=== PATIENT | male | born 1965 | race Caucasian/White ===

== ENCOUNTER 2016-10-14 17:05 | Inpatient (IN) | payer OTHER ==
[~2016-10-14] VITALS: Ht 185.4 cm; Wt 96.1 kg
[~2016-10-14 17:05] MED LIST: BENTYL10 MG PO; CIPRO500 MG PO; FLAGYL500 MG PO; MIRALAX255 GM PO; NOHOMEMEDS
[2016-10-14 18:13] LABS: HEMATOCRIT 49.5 % (38.0-50.0); MCHC 34.9 G/DL (30.0-36.0); MCV 85.9 FL (86-99); MEAN PLAT.VOLUME 10.8 uM^3 (9.0-12.4); PLATELET COUNT 282 K/uL (156-360); RBC DIS.WIDTH-CV 13.1 % (11.8-14.6); RBC DIS.WIDTH-SD 40.4 % (39-53); RED BLOOD COUNT 5.76 M/uL (4.00-5.50); WHITE BLOOD COUNT 13.4 K/uL (4.1-10.2)
[2016-10-14 18:31] LABS: CHLORIDE 107 mEq/L (99-109); SODIUM 142 mEq/L (136-147)
[2016-10-14 18:34] LABS: GLUCOSE 103 mg/dL (70-99)
[2016-10-14 18:35] LABS: ANION GAP 19 MEQ/L (2-14)
[2016-10-14 18:36] LABS: TOTAL BILIRUBIN 0.7 mg/dL (0.0-1.0)
[2016-10-14 18:37] LABS: ALKALINE PHOSPHATASE 90 IU/L (3-129); SERUM ETHYL ALCOHOL 262 mg/dL
[2016-10-14 18:38] LABS: GFR ESTIMATE (CALCULATED) > 59 mL/min/
[2016-10-14 18:39] LABS: UREA NITROGEN (BUN) 17 mg/dL (9-23)
[2016-10-14 18:43] LABS: TROP-I INTERPRETATION NEGATIVE; TROPONIN-I < 0.01 ng/mL (0.0-0.30)
[2016-10-14 21:27] LABS: SALICYLATE < 5.0 MG/DL (15-30)
[2016-10-14 22:05] LABS: ADD MIUA? YES; BILIRUBIN NEGATIVE; BLOOD SMALL; COLOR YELLOW ((YELLOW)); GLUCOSE (STRIP) NEGATIVE; KETONES 20; LEUKOCYTES NEGATIVE; NITRITE NEGATIVE; PROTEIN (STRIP) 100; SPECIFIC GRAVITY 1.023 (1.000-1.030); UROBILINOGEN 0.2 MG/DL (0.2-1.0)
[2016-10-14 22:11] LABS: BACTERIA RARE /HPF; EPITHELIAL CELLS RARE /HPF; HYALINE CASTS 20-30 /LPF; MUCUS TRACE /LPF; RED BLOOD CELLS 0-5 /HPF (0-5); UCUL ADDED? NO; WHITE BLOOD CELLS 0-5 /HPF (0-5)
[2016-10-14 22:13] LABS: ADD MEDTOX COMMENT Y; AMPHETAMINE NEGATIVE (500 ng/mL); BARBITURATES NEGATIVE (200 ng/mL); BENZODIAZEPINES NEGATIVE (150 ng/mL); COCAINE NEGATIVE (150 ng/mL); INTERNAL CONTROLS VALID? YES; METHADONE NEGATIVE (200 ng/mL); METHAMPHETAMINE NEGATIVE (500 ng/mL); OPIATES (MORPHINE) NEGATIVE (100 ng/mL); OXYCODONE NEGATIVE (100 ng/mL); PHENCYCLIDINE NEGATIVE (25 ng/mL); PROPOXYPHENE NEGATIVE (300 ng/mL); THC CANNABINOIDS PRESUMPTIVE POSITIVE (50 ng/mL); TRICYCLIC ANTIDEPRESSANTS NEGATIVE (300 ng/mL)
[2016-10-15 00:31] LABS: MAGNESIUM 2.4 mg/dL (1.3-2.7)
[2016-10-15 01:49] VITALS: BP 135/91
[2016-10-15 05:47] LABS: HEMATOCRIT 39.4 % (38.0-50.0); MCH 31.3 PG (29.0-34.0); MCHC 35.5 G/DL (30.0-36.0); MCV 87.9 FL (86-99); RBC DIS.WIDTH-CV 13.2 % (11.8-14.6); RBC DIS.WIDTH-SD 42.9 % (39-53); RED BLOOD COUNT 4.48 M/uL (4.00-5.50); WHITE BLOOD COUNT 9.4 K/uL (4.1-10.2)
[2016-10-15 05:54] LABS: MEAN PLAT.VOLUME 10.9 uM^3 (9.0-12.4); PLAT.SUFFICIENCY ADEQUATE
[2016-10-15 05:55] LABS: PLATELET COUNT 187 K/uL (156-360)
[2016-10-15 06:15] LABS: ANION GAP 9 MEQ/L (2-14); CHLORIDE 109 MEQ/L (99-109); GFR ESTIMATE (CALCULATED) > 59 mL/min/; GLUCOSE 89 mg/dL (70-99); POTASSIUM 4.2 MEQ/L (3.7-5.4); SAMPLE HEMOLYSIS CHECK 0; SAMPLE ICTERIC CHECK 0; SAMPLE LIPEMIA CHECK 0; SODIUM 140 MEQ/L (136-147); UREA NITROGEN (BUN) 12 mg/dL (9-23)
[2016-10-15 08:30] VITALS: BP 138/88
[2016-10-15 11:48] VITALS: BP 147/93
[2016-10-15 15:49] VITALS: BP 135/89
[2016-10-15 23:51] VITALS: BP 121/74
[2016-10-16] MEDS ORDERED: VITAMIN B-1100 MG PO (07:59)
[2016-10-16] MEDS ORDERED: CHLORDIAZEPOXID25 MG PO ×2 (07:59→08:01)
[2016-10-16 08:08] VITALS: BP 146/76
== END 2016-10-16 09:00 | disposition home or self-care (01) | DRG 641 ==
LOC: EME 17:05 → EDOF 23:46 → 5SOUTH 23:46 → ENRESERV 23:49 → 5SOUTH 10-15 01:34
PROVIDERS: Emergency Medicine; Hospitalist
DX: E87.2 Acidosis (principal); F10.229 Alcohol dependence with intoxication, unspecified; F17.210 Nicotine dependence, cigarettes, uncomplicated; R07.9 Chest pain, unspecified; F43.23 Adjustment disorder with mixed anxiety and depressed mood; R45.851 Suicidal ideations; F12.90 Cannabis use, unspecified, uncomplicated; Y90.8 Blood alcohol level of 240 mg/100 ml or more; Z63.0 Problems in relationship with spouse or partner
CPT/HCPCS: 71010; 80048; 80053; 81003; 82010; 82693 90; 83605; 83735; 84484; 84999; 85027; 93005; 99281; 99285; G0480; J1630; J1650; J3411; J7030

== ENCOUNTER 2016-11-19 21:48 | Observation (INO) | payer OTHER ==
[~2016-11-19] VITALS: Ht 190.5 cm; Wt 91.7 kg
[~2016-11-19 21:48] MED LIST changes: +CHLORDIAZEPOXID25 MG PO; +VITAMIN B-1100 MG PO
[2016-11-19 22:51] LABS: HEMATOCRIT 49.8 % (38.0-50.0); MCH 30.4 PG (29.0-34.0); MCHC 34.1 G/DL (30.0-36.0); MCV 89.1 FL (86-99); MEAN PLAT.VOLUME 11.2 uM^3 (9.0-12.4); PLATELET COUNT 290 K/uL (156-360); RBC DIS.WIDTH-CV 13.2 % (11.8-14.6); RBC DIS.WIDTH-SD 43.2 % (39-53); RED BLOOD COUNT 5.59 M/uL (4.00-5.50); WHITE BLOOD COUNT 21.2 K/uL (4.1-10.2)
[2016-11-19 23:06] LABS: CHLORIDE 110 mEq/L (99-109); POTASSIUM 4.2 mEq/L (3.7-5.4); SODIUM 142 mEq/L (136-147)
[2016-11-19 23:08] LABS: GLUCOSE 80 mg/dL (70-99)
[2016-11-19 23:09] LABS: ANION GAP 18 MEQ/L (2-14)
[2016-11-19 23:11] LABS: SERUM ETHYL ALCOHOL 206 mg/dL
[2016-11-19 23:12] LABS: GFR ESTIMATE (CALCULATED) > 59 mL/min/
[2016-11-19 23:13] LABS: UREA NITROGEN (BUN) 19 mg/dL (9-23)
[2016-11-19 23:47] LABS: CREATINE KINASE 682 IU/L (1-294); TOTAL CK 682 IU/L (1-294)
[2016-11-19 23:53] LABS: CK-MB 5.6 ng/mL (0.0-4.9); TROP-I INTERPRETATION NEGATIVE; TROPONIN-I < 0.01 ng/mL (0.0-0.30)
[2016-11-20 01:58] LABS: CHLORIDE 115 mEq/L (99-109); POTASSIUM 4.2 mEq/L (3.7-5.4); SODIUM 142 mEq/L (136-147)
[2016-11-20 02:00] LABS: GLUCOSE 73 mg/dL (70-99)
[2016-11-20 02:02] LABS: ANION GAP 13 MEQ/L (2-14)
[2016-11-20 02:04] LABS: GFR ESTIMATE (CALCULATED) > 59 mL/min/
[2016-11-20 02:05] LABS: UREA NITROGEN (BUN) 17 mg/dL (9-23)
[2016-11-20 02:07] LABS: CREATINE KINASE 628 IU/L (1-294); TOTAL CK 628 IU/L (1-294)
[2016-11-20 02:17] LABS: BASE EXCESS -8.1 mEq/L (-3 to +3); BICARBONATE 17.1 mEq/L (22-26); CARBOXY HGB 3.4 % (0-5); METHEMOGLOBIN 1.1 % (0-1.5); PCO2 34 mm Hg (35-45); PO2 63 mm Hg (80-100); pH 7.31 (7.35-7.45)
[2016-11-20 02:18] LABS: COMMENTS - BLOOD GASES C+A+; FI02 21 %; O2 FLOW 0 L/MIN; SITE RR
[2016-11-20 02:42] LABS: CK-MB 7.1 ng/mL (0.0-4.9)
[2016-11-20 03:01] LABS: AMPHETAMINE NEGATIVE (500 ng/mL); BARBITURATES NEGATIVE (200 ng/mL); BENZODIAZEPINES PRESUMPTIVE POSITIVE (150 ng/mL); COCAINE NEGATIVE (150 ng/mL); METHADONE NEGATIVE (200 ng/mL); METHAMPHETAMINE NEGATIVE (500 ng/mL); OPIATES (MORPHINE) NEGATIVE (100 ng/mL); OXYCODONE NEGATIVE (100 ng/mL); PHENCYCLIDINE NEGATIVE (25 ng/mL); PROPOXYPHENE NEGATIVE (300 ng/mL); THC CANNABINOIDS PRESUMPTIVE POSITIVE (50 ng/mL); TRICYCLIC ANTIDEPRESSANTS NEGATIVE (300 ng/mL)
[2016-11-20 03:02] LABS: ADD MEDTOX COMMENT Y; INTERNAL CONTROLS VALID? YES
[2016-11-20 03:47] LABS: BENZODIAZEPINES QUANT VALUE 0 NG/ML; BENZODIAZEPINES, URINE SCREEN Negative (200 ng/mL)
[2016-11-20 06:57] LABS: ADD MIUA? NO; BILIRUBIN NEGATIVE; BLOOD NEGATIVE; COLOR YELLOW ((YELLOW)); GLUCOSE (STRIP) NEGATIVE; KETONES 20; LEUKOCYTES NEGATIVE; NITRITE NEGATIVE; PROTEIN (STRIP) 30; UCUL ADDED? NO; UROBILINOGEN 0.2 MG/DL (0.2-1.0)
[2016-11-20 07:52] LABS: MAGNESIUM 2.3 mg/dL (1.3-2.7)
[2016-11-20 08:27] VITALS: BP 137/75
[2016-11-20 09:43] LABS: HEMATOCRIT 44.9 % (38.0-50.0); MCH 29.8 PG (29.0-34.0); MCHC 32.7 G/DL (30.0-36.0); MCV 91.1 FL (86-99); MEAN PLAT.VOLUME 11.6 uM^3 (9.0-12.4); PLATELET COUNT 244 K/uL (156-360); RBC DIS.WIDTH-CV 13.6 % (11.8-14.6); RBC DIS.WIDTH-SD 46.2 % (39-53); RED BLOOD COUNT 4.93 M/uL (4.00-5.50); WHITE BLOOD COUNT 19.1 K/uL (4.1-10.2)
[2016-11-20 09:58] LABS: CHLORIDE 110 mEq/L (99-109); POTASSIUM 4.6 mEq/L (3.7-5.4); SODIUM 139 mEq/L (136-147)
[2016-11-20 10:00] LABS: GLUCOSE 68 mg/dL (70-99)
[2016-11-20 10:02] LABS: ANION GAP 18 MEQ/L (2-14); TOTAL BILIRUBIN 0.6 mg/dL (0.0-1.0)
[2016-11-20 10:04] LABS: ALKALINE PHOSPHATASE 76 IU/L (3-129); GFR ESTIMATE (CALCULATED) > 59 mL/min/
[2016-11-20 10:05] LABS: UREA NITROGEN (BUN) 18 mg/dL (9-23)
[2016-11-20 10:13] LABS: CREATINE KINASE 1030 IU/L (1-294)
[2016-11-20 12:20] LABS: TROP-I INTERPRETATION NEGATIVE; TROPONIN-I < 0.01 ng/mL (0.0-0.30)
[2016-11-20 12:30] VITALS: BP 139/88
[2016-11-20 16:00] LABS: CARBOXY HGB 2.4 % (0-5); METHEMOGLOBIN 1.6 % (0-1.5); PCO2 36 mm Hg (35-45); PO2 72 mm Hg (80-100)
[2016-11-20 16:01] LABS: BICARBONATE 22.3 mEq/L (22-26); COMMENTS - BLOOD GASES A+C+; DEVICE RA; SITE RR
[2016-11-20 16:55] LABS: HEMATOCRIT 40.2 % (38.0-50.0); MCH 30.2 PG (29.0-34.0); MCHC 34.6 G/DL (30.0-36.0); MCV 87.4 FL (86-99); MEAN PLAT.VOLUME 11.2 uM^3 (9.0-12.4); PLATELET COUNT 219 K/uL (156-360); RBC DIS.WIDTH-SD 41.4 % (39-53)
[2016-11-20 17:12] LABS: CREATINE KINASE 1273 IU/L (1-294)
[2016-11-20 18:00] LABS: CHLORIDE 108 mEq/L (99-109); POTASSIUM 3.8 mEq/L (3.7-5.4); SODIUM 136 mEq/L (136-147)
[2016-11-20 18:03] LABS: ANION GAP 11 MEQ/L (2-14); GLUCOSE 97 mg/dL (70-99)
[2016-11-20 18:05] LABS: GFR ESTIMATE (CALCULATED) > 59 mL/min/
[2016-11-20 18:06] LABS: UREA NITROGEN (BUN) 15 mg/dL (9-23)
[2016-11-20 18:59] LABS: TROP-I INTERPRETATION NEGATIVE; TROPONIN-I < 0.01 ng/mL (0.0-0.30)
[2016-11-20 19:33] VITALS: BP 132/88
[2016-11-21 04:00] VITALS: BP 120/77
[2016-11-21 06:03] LABS: HEMATOCRIT 39.8 % (38.0-50.0); MCH 29.8 PG (29.0-34.0); MCHC 33.9 G/DL (30.0-36.0); MCV 87.9 FL (86-99); MEAN PLAT.VOLUME 11.3 uM^3 (9.0-12.4); PLATELET COUNT 198 K/uL (156-360); RBC DIS.WIDTH-CV 12.9 % (11.8-14.6); RBC DIS.WIDTH-SD 42.3 % (39-53); RED BLOOD COUNT 4.53 M/uL (4.00-5.50); WHITE BLOOD COUNT 12.3 K/uL (4.1-10.2)
[2016-11-21 06:26] LABS: ANION GAP 5 MEQ/L (2-14); CHLORIDE 109 MEQ/L (99-109); CREATINE KINASE 783 IU/L (1-294); GFR ESTIMATE (CALCULATED) > 59 mL/min/; GLUCOSE 122 mg/dL (70-99); SAMPLE HEMOLYSIS CHECK 0; SAMPLE ICTERIC CHECK 0; SAMPLE LIPEMIA CHECK 0; SODIUM 139 MEQ/L (136-147); UREA NITROGEN (BUN) 10 mg/dL (9-23)
[2016-11-21 09:01] VITALS: BP 119/80
[2016-11-21] MEDS ORDERED: TYLENOL REGULA325 MG PO (13:29)
[2016-11-21] MEDS ORDERED: FOLIC ACID1 MG PO (13:30)
[2016-11-21] MEDS ORDERED: ONE DAILY MULT1 EACH PO (13:30)
[2016-11-21 14:01] LABS: ANION GAP 7 MEQ/L (2-14); CHLORIDE 109 MEQ/L (99-109); GFR ESTIMATE (CALCULATED) > 59 mL/min/; GLUCOSE 128 mg/dL (70-99); POTASSIUM 3.7 MEQ/L (3.7-5.4); SAMPLE HEMOLYSIS CHECK 0; SAMPLE ICTERIC CHECK 0; SAMPLE LIPEMIA CHECK 0; SODIUM 140 MEQ/L (136-147); UREA NITROGEN (BUN) 10 mg/dL (9-23)
[2016-11-21 15:16] LABS: CREATINE KINASE 732 IU/L (1-294)
[2016-11-21 19:30] VITALS: BP 147/94
== END 2016-11-21 20:10 ==
LOC: EME → EDBD 21:48 → EME 21:48 → 5WEST 11-20 06:08 → EDOF 11-20 06:08 → ENRESERV 11-20 06:16 → 5WEST 11-20 08:19
PROVIDERS: Emergency Medicine; Hospitalist; Internal Medicine
DX: R45.851 Suicidal ideations (principal); F10.20 Alcohol dependence, uncomplicated; F43.23 Adjustment disorder with mixed anxiety and depressed mood; F91.9 Conduct disorder, unspecified; E86.0 Dehydration; E87.2 Acidosis; D72.829 Elevated white blood cell count, unspecified; F19.10 Other psychoactive substance abuse, uncomplicated; Z87.19 Personal history of other diseases of the digestive system; F17.200 Nicotine dependence, unspecified, uncomplicated; M62.82 Rhabdomyolysis; F12.20 Cannabis dependence, uncomplicated; Z88.0 Allergy status to penicillin; Z88.6 Allergy status to analgesic agent
CPT/HCPCS: 36600; 71010; 80048; 80048 91; 80053; 81003; 82550; 82550 91; 82553; 82803; 83735; 84484; 84999; 85027; 90837; 99281; 99285; G0378; G0480; J1630; J1650; J2060; J3411; J3475; J7030; J7050

== ENCOUNTER 2016-11-21 19:21 | Inpatient (IN) | payer OTHER ==
[~2016-11-21 19:21] MED LIST changes: +FOLIC ACID1 MG PO; +ONE DAILY MULT1 EACH PO; +TYLENOL REGULA325 MG PO
[2016-11-21 20:45] VITALS: BP 138/98
[2016-11-22 07:59] VITALS: BP 148/86
[2016-11-22 15:41] VITALS: BP 129/89
[2016-11-23 08:06] VITALS: BP 137/79
[2016-11-23 16:20] VITALS: BP 127/84
[2016-11-24 07:52] VITALS: BP 136/88
[2016-11-24 15:48] VITALS: BP 132/101
[2016-11-25 08:02] VITALS: BP 103/79
[2016-11-25] MEDS ORDERED: Lidoderm 5% Patch TD (08:16)
[2016-11-25] MEDS ORDERED: TRAZODONE HCL50 MG PO (08:16)
[2016-11-25] MEDS ORDERED: BUPROPION HCL100 M1 PO (08:16)
[2016-11-25] MEDS ORDERED: NALTREXONE HCL50 MG PO (08:16)
== END 2016-11-25 10:10 | disposition other institution (70) | DRG 882 ==
LOC: 1WEST 19:21 → ENRESERV 19:22 → 1WEST 20:14
DX: F43.23 Adjustment disorder with mixed anxiety and depressed mood (principal); R45.851 Suicidal ideations; M62.82 Rhabdomyolysis; E87.2 Acidosis; M25.561 Pain in right knee; F10.20 Alcohol dependence, uncomplicated; F12.20 Cannabis dependence, uncomplicated; F17.200 Nicotine dependence, unspecified, uncomplicated; Y04.0XXA Assault by unarmed brawl or fight, initial encounter
CPT/HCPCS: 71020; 73560; 97150 GO; Q0177

== ENCOUNTER 2017-02-18 15:59 | Emergency (ER) | payer OTHER ==
[~2017-02-18] VITALS: Ht 188 cm; Wt 81.8 kg
[~2017-02-18 15:59] MED LIST changes: +BUPROPION HCL100 M1 PO; +Lidoderm 5% Patch TD; +NALTREXONE HCL50 MG PO; +TRAZODONE HCL50 MG PO
[2017-02-18 16:46] LABS: HEMATOCRIT 48.7 % (38.0-50.0); MCH 30.8 PG (29.0-34.0); MCHC 35.3 G/DL (30.0-36.0); MCV 87.3 FL (86-99); MEAN PLAT.VOLUME 11.1 uM^3 (9.0-12.4); PLATELET COUNT 260 K/uL (156-360); RBC DIS.WIDTH-SD 41.3 % (39-53); RED BLOOD COUNT 5.58 M/uL (4.00-5.50); WHITE BLOOD COUNT 12.2 K/uL (4.1-10.2)
[2017-02-18 16:51] LABS: AMPHETAMINE NEGATIVE (500 ng/mL); BARBITURATES NEGATIVE (200 ng/mL); BENZODIAZEPINES NEGATIVE (150 ng/mL); COCAINE NEGATIVE (150 ng/mL); INTERNAL CONTROLS VALID? YES; METHADONE NEGATIVE (200 ng/mL); METHAMPHETAMINE NEGATIVE (500 ng/mL); OPIATES (MORPHINE) NEGATIVE (100 ng/mL); OXYCODONE NEGATIVE (100 ng/mL); PHENCYCLIDINE NEGATIVE (25 ng/mL); PROPOXYPHENE NEGATIVE (300 ng/mL); THC CANNABINOIDS NEGATIVE (50 ng/mL); TRICYCLIC ANTIDEPRESSANTS NEGATIVE (300 ng/mL)
[2017-02-18 16:56] LABS: CHLORIDE 111 mEq/L (99-109); SODIUM 144 mEq/L (136-147)
[2017-02-18 16:58] LABS: GLUCOSE 96 mg/dL (70-99)
[2017-02-18 16:59] LABS: ANION GAP 12 MEQ/L (2-14)
[2017-02-18 17:01] LABS: SERUM ETHYL ALCOHOL 234 mg/dL
[2017-02-18 17:02] LABS: GFR ESTIMATE (CALCULATED) > 59 mL/min/ (58.99-99999)
[2017-02-18 17:04] LABS: UREA NITROGEN (BUN) 12 mg/dL (9-23)
[2017-02-18 17:05] LABS: SALICYLATE < 5.0 MG/DL (15-30)
[2017-02-18 22:49] VITALS: BP 121/82
== END 2017-02-18 22:59 | disposition home or self-care (01) ==
LOC: EME 15:59
PROVIDERS: Nurse Practitioner Family
DX: F33.9 Major depressive disorder, recurrent, unspecified (principal); F10.20 Alcohol dependence, uncomplicated; Y90.7 Blood alcohol level of 200-239 mg/100 ml; F17.200 Nicotine dependence, unspecified, uncomplicated; Z88.0 Allergy status to penicillin; Z88.6 Allergy status to analgesic agent
CPT/HCPCS: 80048; 85027; 90837; 99281; 99284; G0480; J1630; J2060

== ENCOUNTER 2017-03-17 17:28 | Emergency (ER) | payer OTHER ==
[~2017-03-17] VITALS: Ht 190.5 cm; Wt 89.9 kg
[2017-03-17 18:15] LABS: HEMATOCRIT 46.2 % (38.0-50.0); HEMOGLOBIN 16.3 G/DL (12.5-16.6); MCHC 35.3 G/DL (30.0-36.0); MCV 87.8 FL (86-99); PLATELET COUNT 318 K/uL (156-360); RBC DIS.WIDTH-CV 12.8 % (11.8-14.6); RBC DIS.WIDTH-SD 41.5 % (39-53); RED BLOOD COUNT 5.26 M/uL (4.00-5.50); WHITE BLOOD COUNT 17.5 K/uL (4.1-10.2)
[2017-03-17 18:22] LABS: ALBUMIN 4.4 g/dL (3.2-4.8); CHLORIDE 109 mEq/L (99-109); POTASSIUM 3.4 mEq/L (3.7-5.4)
[2017-03-17 18:23] LABS: SODIUM 139 mEq/L (136-147)
[2017-03-17 18:25] LABS: GLUCOSE 126 mg/dL (70-99); TOTAL PROTEIN 7.3 g/dL (6.4-8.3)
[2017-03-17 18:27] LABS: TOTAL BILIRUBIN 0.4 mg/dL (0.0-1.0)
[2017-03-17 18:28] LABS: ALKALINE PHOSPHATASE 68 IU/L (3-129); SERUM ETHYL ALCOHOL 204 mg/dL
[2017-03-17 18:29] LABS: CREATININE 1.1 mg/dL (0.6-1.3); GFR ESTIMATE (CALCULATED) > 59 mL/min/ (58.99-99999)
[2017-03-17 18:30] LABS: AST (GOT) 20 IU/L (2-34); UREA NITROGEN (BUN) 12 mg/dL (9-23)
[2017-03-17 18:31] LABS: ALT (GPT) 21 IU/L (3-49)
[2017-03-17 22:27] VITALS: BP 114/69
[2017-03-17 22:44] LABS: APPEARANCE CLEAR ((CLEAR)); BILIRUBIN NEGATIVE; BLOOD NEGATIVE; COLOR STRAW ((YELLOW)); GLUCOSE (STRIP) NEGATIVE; KETONES NEGATIVE; LEUKOCYTES NEGATIVE; NITRITE NEGATIVE; PROTEIN (STRIP) NEGATIVE; SPECIFIC GRAVITY 1.004 (1.000-1.030); UCUL ADDED? NO; UROBILINOGEN 0.2 MG/DL (0.2-1.0)
[2017-03-17 23:01] LABS: AMPHETAMINE NEGATIVE (500 ng/mL); BARBITURATES NEGATIVE (200 ng/mL); BENZODIAZEPINES NEGATIVE (150 ng/mL); BUPRENORPHINE NEGATIVE (10 ng/mL); COCAINE NEGATIVE (150 ng/mL); METHADONE NEGATIVE (200 ng/mL); METHAMPHETAMINE NEGATIVE (500 ng/mL); OPIATES (MORPHINE) NEGATIVE (100 ng/mL); OXYCODONE NEGATIVE (100 ng/mL); PHENCYCLIDINE NEGATIVE (25 ng/mL); PROPOXYPHENE NEGATIVE (300 ng/mL); THC CANNABINOIDS NEGATIVE (50 ng/mL); TRICYCLIC ANTIDEPRESSANTS NEGATIVE (300 ng/mL)
== END 2017-03-17 23:59 | disposition home or self-care (01) ==
LOC: EME 17:28
PROVIDERS: Emergency Medicine
DX: F10.129 Alcohol abuse with intoxication, unspecified (principal); F33.9 Major depressive disorder, recurrent, unspecified; R45.1 Restlessness and agitation; E86.0 Dehydration; Y90.7 Blood alcohol level of 200-239 mg/100 ml; F17.200 Nicotine dependence, unspecified, uncomplicated
CPT/HCPCS: 80053; 81003; 85027; 90837; 99281; 99285; G0480; J1630; J2060

== ENCOUNTER 2017-04-07 14:21 | Inpatient (IN) | payer OTHER ==
[~2017-04-07] VITALS: Ht 190.5 cm; Wt 93.9 kg
[2017-04-07] MEDS ORDERED: PROZAC20 MG PO (14:51)
[2017-04-07 14:52] LABS: BASOPHIL (%) 0.6 % (0-1); BASOPHIL COUNT 0.1 K/uL (0-0.1); EOSINOPHIL (%) 0.8 % (0-5); EOSINOPHIL COUNT 0.1 K/uL (0-0.3); HEMATOCRIT 46.3 % (38.0-50.0); HEMOGLOBIN 16.4 G/DL (12.5-16.6); IMMATURE GRANULOCYTE (%) 0.9 % (0.0-0.7); LYMPHOCYTE (%) 18.1 % (15-42); LYMPHOCYTE COUNT 2.3 K/uL (1.0-2.8); MCHC 35.4 G/DL (30.0-36.0); MCV 87.5 FL (86-99); MONOCYTE (%) 4.9 % (3-12); MONOCYTE COUNT 0.6 K/uL (0-0.8); NEUTROPHIL (%) 74.7 % (45-76); NEUTROPHIL COUNT 9.5 K/uL (1.8-6.4); PLATELET COUNT 249 K/uL (156-360); RBC DIS.WIDTH-CV 12.8 % (11.8-14.6); RBC DIS.WIDTH-SD 40.9 % (39-53); RED BLOOD COUNT 5.29 M/uL (4.00-5.50); WHITE BLOOD COUNT 12.7 K/uL (4.1-10.2)
[2017-04-07 15:03] LABS: ALBUMIN 4.7 g/dL (3.2-4.8); CHLORIDE 111 mEq/L (99-109); POTASSIUM 3.9 mEq/L (3.7-5.4); SODIUM 140 mEq/L (136-147)
[2017-04-07 15:06] LABS: GLUCOSE 151 mg/dL (70-99); TOTAL PROTEIN 7.7 g/dL (6.4-8.3)
[2017-04-07 15:08] LABS: TOTAL BILIRUBIN 0.3 mg/dL (0.0-1.0)
[2017-04-07 15:09] LABS: SERUM ETHYL ALCOHOL 192 mg/dL
[2017-04-07 15:10] LABS: ALKALINE PHOSPHATASE 83 IU/L (3-129); CREATININE 1.1 mg/dL (0.6-1.3); GFR ESTIMATE (CALCULATED) > 59 mL/min/ (58.99-99999)
[2017-04-07 15:11] LABS: AST (GOT) 21 IU/L (2-34); UREA NITROGEN (BUN) 14 mg/dL (9-23)
[2017-04-07 15:13] LABS: ACETAMINOPHEN (TYLENOL) < 10 mcg/mL (10-30); ALT (GPT) 26 IU/L (3-49); SALICYLATE < 5.0 MG/DL (15-30)
[2017-04-07 16:24] LABS: AMPHETAMINE NEGATIVE (500 ng/mL); BARBITURATES NEGATIVE (200 ng/mL); BENZODIAZEPINES NEGATIVE (150 ng/mL); BUPRENORPHINE NEGATIVE (10 ng/mL); COCAINE NEGATIVE (150 ng/mL); METHADONE NEGATIVE (200 ng/mL); METHAMPHETAMINE NEGATIVE (500 ng/mL); OPIATES (MORPHINE) NEGATIVE (100 ng/mL); OXYCODONE NEGATIVE (100 ng/mL); PHENCYCLIDINE NEGATIVE (25 ng/mL); PROPOXYPHENE NEGATIVE (300 ng/mL); THC CANNABINOIDS NEGATIVE (50 ng/mL); TRICYCLIC ANTIDEPRESSANTS NEGATIVE (300 ng/mL)
[2017-04-07 20:03] VITALS: BP 134/94
[2017-04-07] MEDS ORDERED: SEROQUEL50 MG PO (20:21)
[2017-04-07] MEDS ORDERED: IBUPROFEN800 MG PO (20:27)
[2017-04-08 08:21] VITALS: BP 150/100
[2017-04-08 15:47] VITALS: BP 119/80
[2017-04-08 15:49] VITALS: BP 119/80
[2017-04-09 09:27] VITALS: BP 131/63
[2017-04-09 15:11] VITALS: BP 142/82
[2017-04-10 08:09] VITALS: BP 119/73
[2017-04-10 14:59] VITALS: BP 123/80
[2017-04-11 07:57] VITALS: BP 119/83
[2017-04-11] MEDS ORDERED: CYMBALTA60 MG PO (08:57)
== END 2017-04-11 09:47 | disposition home or self-care (01) | DRG 885 ==
LOC: EME 14:21 → EDOF 18:59 → 1WEST 18:59 → ENRESERV 19:54 → 1WEST 19:54
PROVIDERS: Emergency Medicine
DX: F33.2 Major depressive disorder, recurrent severe without psychotic features (principal); Z79.899 Other long term (current) drug therapy; Z59.0 Homelessness; R45.851 Suicidal ideations; F10.20 Alcohol dependence, uncomplicated; F17.200 Nicotine dependence, unspecified, uncomplicated
CPT/HCPCS: 80053; 85025; 90839; 97150 GO; 97165 GO; 99281; 99285; G0480

== ENCOUNTER 2017-05-27 08:57 | Emergency (ER) | payer OTHER ==
[~2017-05-27] VITALS: Ht 193 cm; Wt 89.7 kg
[~2017-05-27 08:57] MED LIST changes: +CYMBALTA60 MG PO; +IBUPROFEN800 MG PO; +PROZAC20 MG PO; +SEROQUEL50 MG PO
[2017-05-27 10:47] LABS: HEMATOCRIT 47.7 % (38.0-50.0); HEMOGLOBIN 16.5 G/DL (12.5-16.6); MCH 30.9 PG (29.0-34.0); MCHC 34.6 G/DL (30.0-36.0); MCV 89.3 FL (86-99); PLATELET COUNT 216 K/uL (156-360); RBC DIS.WIDTH-CV 13.2 % (11.8-14.6); RBC DIS.WIDTH-SD 43.5 % (39-53); RED BLOOD COUNT 5.34 M/uL (4.00-5.50); WHITE BLOOD COUNT 10.1 K/uL (4.1-10.2)
[2017-05-27 11:00] LABS: CHLORIDE 109 mEq/L (99-109); POTASSIUM 3.9 mEq/L (3.7-5.4); SODIUM 145 mEq/L (136-147)
[2017-05-27 11:01] LABS: GLUCOSE 103 mg/dL (70-99)
[2017-05-27 11:04] LABS: SERUM ETHYL ALCOHOL 233 mg/dL
[2017-05-27 11:05] LABS: CREATININE 0.9 mg/dL (0.6-1.3); GFR ESTIMATE (CALCULATED) > 59 mL/min/ (58.99-99999)
[2017-05-27 11:06] LABS: UREA NITROGEN (BUN) 11 mg/dL (9-23)
[2017-05-27 16:07] LABS: AMPHETAMINE NEGATIVE (500 ng/mL); BARBITURATES NEGATIVE (200 ng/mL); BENZODIAZEPINES PRESUMPTIVE POSITIVE (150 ng/mL); BUPRENORPHINE NEGATIVE (10 ng/mL); COCAINE NEGATIVE (150 ng/mL); METHADONE NEGATIVE (200 ng/mL); METHAMPHETAMINE NEGATIVE (500 ng/mL); OPIATES (MORPHINE) NEGATIVE (100 ng/mL); OXYCODONE NEGATIVE (100 ng/mL); PHENCYCLIDINE NEGATIVE (25 ng/mL); PROPOXYPHENE NEGATIVE (300 ng/mL); THC CANNABINOIDS PRESUMPTIVE POSITIVE (50 ng/mL); TRICYCLIC ANTIDEPRESSANTS NEGATIVE (300 ng/mL)
[2017-05-27 16:42] VITALS: BP 117/79
[2017-05-27 16:44] LABS: BENZODIAZEPINES, URINE SCREEN Negative (200 ng/mL)
== END 2017-05-27 16:59 | disposition home or self-care (01) ==
LOC: EME 08:57
PROVIDERS: Nurse Practitioner Family
DX: F43.20 Adjustment disorder, unspecified (principal); F10.10 Alcohol abuse, uncomplicated; Y90.7 Blood alcohol level of 200-239 mg/100 ml; F17.200 Nicotine dependence, unspecified, uncomplicated; F32.9 Major depressive disorder, single episode, unspecified; Z88.0 Allergy status to penicillin; Z88.6 Allergy status to analgesic agent
CPT/HCPCS: 80048; 84999; 85027; 90839; 99281; 99285; G0480; J1630; J2060

== ENCOUNTER 2017-07-06 20:05 | Inpatient (IN) | payer OTHER ==
[~2017-07-06] VITALS: Ht 193 cm; Wt 97.6 kg
[2017-07-06 20:59] LABS: AMPHETAMINE NEGATIVE (500 ng/mL); BARBITURATES NEGATIVE (200 ng/mL); BENZODIAZEPINES NEGATIVE (150 ng/mL); BUPRENORPHINE NEGATIVE (10 ng/mL); COCAINE NEGATIVE (150 ng/mL); METHADONE NEGATIVE (200 ng/mL); METHAMPHETAMINE NEGATIVE (500 ng/mL); OPIATES (MORPHINE) NEGATIVE (100 ng/mL); OXYCODONE NEGATIVE (100 ng/mL); PHENCYCLIDINE NEGATIVE (25 ng/mL); PROPOXYPHENE NEGATIVE (300 ng/mL); THC CANNABINOIDS PRESUMPTIVE POSITIVE (50 ng/mL); TRICYCLIC ANTIDEPRESSANTS NEGATIVE (300 ng/mL)
[2017-07-06 21:10] LABS: BASOPHIL (%) 0.9 % (0-1); BASOPHIL COUNT 0.1 K/uL (0-0.1); EOSINOPHIL (%) 1.5 % (0-5); EOSINOPHIL COUNT 0.2 K/uL (0-0.3); HEMATOCRIT 50.4 % (38.0-50.0); HEMOGLOBIN 17.8 G/DL (12.5-16.6); IMMATURE GRANULOCYTE (%) 1.6 % (0.0-0.7); LYMPHOCYTE (%) 21.8 % (15-42); LYMPHOCYTE COUNT 2.2 K/uL (1.0-2.8); MCH 31.1 PG (29.0-34.0); MCHC 35.3 G/DL (30.0-36.0); MCV 88.1 FL (86-99); MONOCYTE (%) 6.5 % (3-12); MONOCYTE COUNT 0.7 K/uL (0-0.8); NEUTROPHIL (%) 67.7 % (45-76); NEUTROPHIL COUNT 6.9 K/uL (1.8-6.4); PLATELET COUNT 242 K/uL (156-360); RBC DIS.WIDTH-CV 13.1 % (11.8-14.6); RBC DIS.WIDTH-SD 42.6 % (39-53); RED BLOOD COUNT 5.72 M/uL (4.00-5.50); WHITE BLOOD COUNT 10.1 K/uL (4.1-10.2)
[2017-07-06 21:17] LABS: ALBUMIN 4.9 g/dL (3.2-4.8); CHLORIDE 111 mEq/L (99-109); POTASSIUM 4.1 mEq/L (3.7-5.4); SODIUM 144 mEq/L (136-147)
[2017-07-06 21:20] LABS: GLUCOSE 98 mg/dL (70-99)
[2017-07-06 21:21] LABS: TOTAL BILIRUBIN 0.6 mg/dL (0.0-1.0)
[2017-07-06 21:22] LABS: SERUM ETHYL ALCOHOL 236 mg/dL
[2017-07-06 21:23] LABS: ALKALINE PHOSPHATASE 70 IU/L (3-129); CREATININE 1.2 mg/dL (0.6-1.3); GFR ESTIMATE (CALCULATED) > 59 mL/min/ (58.99-99999)
[2017-07-06 21:24] LABS: UREA NITROGEN (BUN) 15 mg/dL (9-23)
[2017-07-06 21:25] LABS: AST (GOT) 28 IU/L (2-34)
[2017-07-06 21:26] LABS: ALT (GPT) 31 IU/L (3-49)
[2017-07-07 03:59] VITALS: BP 129/89
[2017-07-07 08:03] VITALS: BP 135/88
[2017-07-07 15:58] VITALS: BP 133/90; BP 156/72
[2017-07-08 07:54] VITALS: BP 129/76
[2017-07-08] MEDS ORDERED: NALTREXONE HCL50 MG PO (08:27)
[2017-07-08 15:38] VITALS: BP 143/91
[2017-07-09 07:41] VITALS: BP 108/79
[2017-07-09 15:32] VITALS: BP 133/71
[2017-07-10 07:54] VITALS: BP 117/87
[2017-07-10 15:44] VITALS: BP 136/81
[2017-07-11 07:53] VITALS: BP 135/81
[2017-07-11] MEDS ORDERED: QUETIAPINE FUM100 MG PO (10:56)
== END 2017-07-11 11:28 | disposition home or self-care (01) | DRG 885 ==
LOC: EME → EDBD 20:05 → EME 20:05 → EDOF 07-07 03:14 → 1WEST 07-07 03:14 → ENRESERV 07-07 03:38 → 1WEST 07-07 03:49
PROVIDERS: Emergency Medicine
DX: F33.9 Major depressive disorder, recurrent, unspecified (principal); F43.23 Adjustment disorder with mixed anxiety and depressed mood; F10.229 Alcohol dependence with intoxication, unspecified; Y90.7 Blood alcohol level of 200-239 mg/100 ml; R45.851 Suicidal ideations; F12.20 Cannabis dependence, uncomplicated; G89.29 Other chronic pain; M25.569 Pain in unspecified knee; M54.9 Dorsalgia, unspecified; F17.200 Nicotine dependence, unspecified, uncomplicated
CPT/HCPCS: 80053; 84999; 85025; 90837; 97150 GO; 97166 GO; 99281; 99285; G0480; Q0177